=== PATIENT | male | born 1995 | race African-American/Black ===

== ENCOUNTER 2019-03-27 11:51 | Emergency (ER) | payer SELFPAY ==
[2019-03-27 13:15] LABS: Bacteria/HPF None Seen HPF (None Seen); Bilirubin Negative (Negative); Blood, Urine Negative (Negative); Clarity Clear (Clear); Glucose, Urine (Dipstick) Normal (Negative); Leukocyte 75 Leu/uL (Negative); Mucous/LPF 1+ LPF (<2+); Nitrite Negative (Negative); Protein, Urine (Dipstick) 10 mg/dL (Neg-Trace); RBC/HPF 0-3 HPF (0-3); Squamous Epithelial 0-3 HPF (0-3); Urobilinogen Normal mg/dL (Less than 2)
[2019-03-27] MEDS ORDERED: cefTRIAXone\\ROCEPHIN 250 MG VIAL ONE (14:07)
[2019-03-27] MEDS ORDERED: Azithromycin 250 MG TAB ONE (14:07)
[2019-03-27] MEDS ORDERED: Lidocaine 1% PF 5 ML VIAL ONE (14:08)
[2019-03-31 17:18] LABS: Chlam.trachomatis by PCR,Urine DETECTED (NotDetected)
== END 2019-03-27 14:40 | disposition home or self-care (01) ==
LOC: ERS 11:51
DX: Z20.2 Contact with and (suspected) exposure to infections with a predominantly sexual mode of transmission (principal); F17.210 Nicotine dependence, cigarettes, uncomplicated
CPT/HCPCS: 81003; 81015; 87491; 87591; 96372; 99284; J0696; J2001

== ENCOUNTER 2021-02-24 16:49 | Emergency (ER) | payer SELFPAY ==
[2021-02-24] MEDS ORDERED: Ketorolac Tromethamine 30 MG/ML VIAL ONE (18:18)
== END 2021-02-24 18:29 | disposition home or self-care (01) ==
LOC: ERS 16:49
DX: M25.512 Pain in left shoulder (principal); M25.532 Pain in left wrist; F17.210 Nicotine dependence, cigarettes, uncomplicated
CPT/HCPCS: 96372; 99283; J1885